=== PATIENT | female | born 1970 | race Hispanic/Latino ===

== ENCOUNTER 2022-12-28 02:10 | Emergency (ER) | payer OTHER ==
[~2022-12-28] VITALS: Ht 167.6 cm; Wt 76.7 kg
[2022-12-28 02:12] VITALS: BP 155/97
== END 2022-12-28 03:47 | disposition left against medical advice (07) ==
LOC: EDH 02:10
DX: R06.02 Shortness of breath (principal); Z53.21 Procedure and treatment not carried out due to patient leaving prior to being seen by health care provider
CPT/HCPCS: 36415; 83605; 84484; 93005; 99281